=== PATIENT | male | born 1955 | race Caucasian/White ===

== ENCOUNTER → 2020-10-02 | Outpatient (CLI) | payer OTHER ==
[~2020-10-02] MED LIST: ASPIRIN EC81 MG PO; ATORVASTATIN CA20 MG PO; BRILINTA 90 MG90 MG PO; CLOPIDOGREL75 MG PO; COZAAR 25MG TAB25 MG PO; ENTRESTO 97 MG1 EACH PO; FUROSEMIDE20 MG PO; LIPITOR40 MG PO; LOPRESSOR 25 MG25 MG PO; NICOTINE PATCH1 EAC2 TD; NITROGLYCERIN0.4 MG SL; PANTOPRAZOLE SO40 MG PO; TOPROL XL25 MG PO
[2020-10-02 13:10] LABS: BUN/CREATININE RATIO 11 (0-10)
== END ==
LOC: LAB 10:37
PROVIDERS: Physician Assistant
DX: I50.22 Chronic systolic (congestive) heart failure (principal); I42.0 Dilated cardiomyopathy; Z98.61 Coronary angioplasty status; I25.5 Ischemic cardiomyopathy
CPT/HCPCS: 36415; 80053; 80061

== ENCOUNTER → 2021-07-04 | Outpatient (CLI) | payer MEDICARE, OTHER ==
[2021-07-04 10:55] LABS: HEMOGLOBIN 18.3 gm/dl (14.0-17.5); RED BLOOD COUNT 5.81 M/UL (4.20-5.50); WHITE BLOOD COUNT 11.7 K/UL (4.5-11.0)
[2021-07-04 12:41] LABS: BUN/CREATININE RATIO 8 (0-10)
== END ==
LOC: LAB 10:25
DX: I25.10 Atherosclerotic heart disease of native coronary artery without angina pectoris (principal); I42.0 Dilated cardiomyopathy; I25.5 Ischemic cardiomyopathy; E78.5 Hyperlipidemia, unspecified
CPT/HCPCS: 36415; 80053; 80061; 85025

== ENCOUNTER 2021-09-17 14:27 | Emergency (ER) | payer MEDICARE, OTHER ==
[2021-09-17 15:37] LABS: HEMOGLOBIN 16.7 gm/dl (14.0-17.5); RED BLOOD COUNT 5.43 M/UL (4.20-5.50); WHITE BLOOD COUNT 13.9 K/UL (4.5-11.0)
[2021-09-17 16:05] LABS: BUN/CREATININE RATIO 16 (0-10)
[2021-09-17] MEDS ORDERED: MEDROL4 MG PO (16:53)
== END 2021-09-17 17:05 | disposition home or self-care (01) ==
LOC: ER1 14:27
PROVIDERS: Preventive Medicine Occupational Medicine
DX: M54.50 Low back pain, unspecified (principal); G89.29 Other chronic pain; I51.9 Heart disease, unspecified; F17.210 Nicotine dependence, cigarettes, uncomplicated
CPT/HCPCS: 72100; 73030; 73502; 80053; 84550; 85025; 85652; 86140; 96374; 99283; J2930

== ENCOUNTER 2021-09-25 10:59 | Emergency (ER) | payer MEDICARE, OTHER ==
[~2021-09-25 10:59] MED LIST changes: +MEDROL4 MG PO
[2021-09-25 12:06] LABS: HEMOGLOBIN 15.9 gm/dl (14.0-17.5); RED BLOOD COUNT 5.17 M/UL (4.20-5.50); WHITE BLOOD COUNT 18.1 K/UL (4.5-11.0)
[2021-09-25] MEDS ORDERED: ENDOCET 5-3251 EACH PO (15:14)
[2021-09-25] MEDS ORDERED: Voltaren Gel 1% TOP (15:19)
== END 2021-09-25 15:56 | disposition home or self-care (01) ==
LOC: ER1 10:59
PROVIDERS: Physician Assistant Medical
DX: M25.562 Pain in left knee (principal); N17.9 Acute kidney failure, unspecified; E86.0 Dehydration; R60.0 Localized edema; I51.9 Heart disease, unspecified; Z95.5 Presence of coronary angioplasty implant and graft
CPT/HCPCS: 71045; 72170; 73030; 73564; 80053; 82550; 82553; 83880; 84484; 84550; 85025; 85610; 93005; 99284; J7030